=== PATIENT | male | born 1990 ===

== ENCOUNTER 2017-04-29 11:07 | Emergency (ER) | payer MEDICAID ==
[2017-04-29 11:13] VITALS: BP 116/74; PULSE 85; TEMP 97; O2SAT 100
[2017-04-29 11:14] VITALS: BMI 21.5
--- NOTE | 2017-04-29 11:26 | ED PDOC ---
HPI: Abdomen Time Seen by Provider: 04/29/17 11:25 Chief Complaint (Provider): abdominal pain History Per: Patient Additional Complaint(s): 26-year-old male with history of IBS presents to emergency department with 2 week history of generalized body aches and fatigue. Patient denies nausea or vomiting. He does also state he has had indigestion, gas and bloating. Patient is tolerating liquids and solids. Patient takes fiber supplements daily and his last bowel movement was this morning. Denies any associated abdominal pain. Patient also mentions he is currently taking Suboxone. She states 2 weeks ago he developed discomfort and left arm which has since resolved. Upon arrival he denies any chest pain, shortness of breath or dyspnea on exertion. Patient denies any history of recent cough, congestion, sore throat, headache or dizziness. No associated vision changes. Past Medical History Reviewed: Historical Data, Nursing Documentation, Vital Signs Vital Signs: Last Vital Signs Temp 97 F L 04/29/17 11:12 Pulse 85 04/29/17 11:12 Resp BP 116/74 04/29/17 11:12 Pulse Ox 100 04/29/17 12:41 - Medical History Other PMH: IBS - Surgical History Surgical History: No Surg Hx - Family History Family History: States: No Known Family Hx - Living Arrangements Living Arrangements: With Family - Social History Current smoker - smoking cessation education provided: No Alcohol: None Drugs: Denies - Allergies Allergies/Adverse Reactions: Allergies Allergy/AdvReac Type Severity Reaction Status Date / Time No Known Allergies Allergy Verified 04/29/17 11:26 Review of Systems ROS Statement: Except As Marked, All Systems Reviewed And Found Negative Constitutional: Positive for: Other (body aches and fatigue for 2 weeks). Negative for: Fever Cardiovascular: Negative for: Chest Pain, Palpitations Respiratory: Negative for: Cough, Shortness of Breath, SOB with Exertion, Wheezing Gastrointestinal: Positive for: Other (gas and bloating). Negative for: Nausea , Vomiting, Abdominal Pain Genitourinary Male: Negative for: Dysuria Neurological: Negative for: Headache, Dizziness Physical Exam - Reviewed Nursing Documentation Reviewed: Yes Vital Signs Reviewed: Yes - Physical Exam Appears: Positive for: Well, Non-toxic, No Acute Distress Skin: Negative for: Rash Eye Exam: Positive for: Normal appearance, EOMI, PERRL Neck: Positive for: Normal Cardiovascular/Chest: Positive for: Regular Rate, Rhythm. Negative for: Murmur Respiratory: Positive for: Normal Breath Sounds. Negative for: Respiratory Distress Gastrointestinal/Abdominal: Positive for: Soft. Negative for: Tenderness, Distended, Guarding, Rebound Back: Negative for: L CVA Tenderness, R CVA Tenderness Neurologic/Psych: Positive for: Alert, Oriented, Gait (steady). Negative for: Aphasia, Facial Droop - Laboratory Results Result Diagrams: 04/29/17 12:00 04/29/17 12:00 - ECG Interpretation Of ECG: NSR 64 bpm, no acute finding, reviewed by PA and ED attending O2 Sat by Pulse Oximetry: 100 Pulse Ox Interpretation: Normal - Other Rad CXR X-Ray: Interpreted by Me, Viewed By Me X-Ray Interpretation: no infiltrate or other acute finding KUB X-Ray: Interpreted by Me, Viewed By Me X-Ray Interpretation: moderate constipation with no obstruction Medical Decision Making Medical Decision Makin26 year old with body aches, fatigue and indigestion Plan: CBC CMP Flu swab UA CXR KUB EKG IVF Patient is aware of all diagnostic testing results, all questions answered. Patient given copies of labs and was instructed to follow up with primary doctor , medicine television servicer referral was provided. Disposition - Clinical Impression Clinical Impression: Fatigue, Constipation - Patient ED Disposition Is Patient to be Admitted: No Counseled Patient/Family Regarding: Studies Performed, Diagnosis, Need For Followup - Disposition Referrals: Alexey Higgins MD [Staff Provider] - Disposition: Routine/Home Disposition Time: 13:16 Condition: STABLE Additional Instructions: Increase water intake and increase fiber in diet. See attached dietary instructions. Follow up with primary doctor as soon as possible. Instructions: Fatigue (ED), Constipation (ED), High Fiber Diet (ED) Results - Vital Signs Recent Vital Signs: Last Vital Signs Temp 97 F L 04/29/17 11:12 Pulse 85 04/29/17 11:12 Resp BP 116/74 04/29/17 11:12 Pulse Ox 100 04/29/17 12:41 - Labs Result Diagrams: 04/29/17 12:00 04/29/17 12:00 Labs: Laboratory Results - last 24 hr 04/29/17 04/29/17 04/29/17 12:00 12:00 12:00 WBC 5.3 RBC 4.87 Hgb 15.0 Hct 43.1 MCV 88.6 MCH 30.7 MCHC 34.7 RDW 12.4 Plt Count 203 MPV 8.6 Neut % (Auto) 53.3 Lymph % (Auto) 40.1 H Andrews % (Auto) 5.4 Eos % (Auto) 0.9 Baso % (Auto) 0.3 Neut # 2.8 Lymph # 2.1 Andrews # 0.3 Eos # 0.0 Baso # 0.0 Sodium 143 Potassium 5.0 Chloride 102 Carbon Dioxide 27 Anion Gap 19 BUN 21 H Creatinine 1.0 Est GFR ( Amer) > 60 Est GFR (Non-Af Amer) > 60 Random Glucose 86 Calcium 9.5 Total Bilirubin 0.8 AST 51 ALT 108 H Alkaline Phosphatase 75 Total Protein 8.7 H Albumin 5.1 H Globulin 3.6 Albumin/Globulin Ratio 1.4 Urine Color Urine Clarity Urine pH Ur Specific [place] Urine Protein Urine Glucose (UA) Urine Ketones Urine Blood Urine Nitrate Urine Bilirubin Urine Urobilinogen Ur Leukocyte Esterase Urine RBC (Auto) Urine Microscopic WBC Urine Bacteria Influenza Typ A,B (EIA) Negative for flu a/b 04/29/17 12:27 WBC RBC Hgb Hct MCV MCH MCHC RDW Plt Count MPV Neut % (Auto) Lymph % (Auto) Andrews % (Auto) Eos % (Auto) Baso % (Auto) Neut # Lymph # Andrews # Eos # Baso # Sodium Potassium Chloride Carbon Dioxide Anion Gap BUN Creatinine Est GFR ( Amer) Est GFR (Non-Af Amer) Random Glucose Calcium Total Bilirubin AST ALT Alkaline Phosphatase Total Protein Albumin Globulin Albumin/Globulin Ratio Urine Color Yellow Urine Clarity Clear Urine pH 6.0 Ur Specific [place] 1.025 Urine Protein Negative Urine Glucose (UA) Neg Urine Ketones Negative Urine Blood Negative Urine Nitrate Negative Urine Bilirubin Negative Urine Urobilinogen 0.2-1.0 Ur Leukocyte Esterase Neg Urine RBC (Auto) 3 Urine Microscopic WBC < 1 Urine Bacteria Rare Influenza Typ A,B (EIA)
[2017-04-29] MEDS ORDERED: Sodium Chloride 0.9% 1,000 ML IV STA (11:55)
[2017-04-29 12:09] LABS: BASO % 0.3 % (0.0-2.0); EOS % 0.9 % (0.0-4.0); HEMATOCRIT 43.1 % (35.0-51.0); LYMPH # 2.1 K/uL (1.0-4.3); LYMPH % 40.1 % (20.0-40.0); MEAN CELL VOLUME 88.6 fl (80.0-94.0); MEAN CORPUSCULAR HEMOGLOBIN 30.7 pg (27.0-31.0); MEAN CORPUSCULAR HGB CONC 34.7 g/dL (33.0-37.0); MEAN PLATELET VOLUME 8.6 fl (7.2-11.7); MONO # 0.3 K/uL (0.0-0.8); MONO % 5.4 % (0.0-10.0); NEUT # 2.8 K/uL (1.8-7.0); NEUT % 53.3 % (50.0-75.0); NRBC % 0.1 % (0.0-0.0); RED CELL DISTRIBUTION WIDTH 12.4 % (11.5-14.5); WHITE BLOOD COUNT 5.3 K/uL (4.8-10.8)
[2017-04-29 12:17] LABS: ALB/GLOB RATIO 1.4 (1.0-2.1); ALKALINE PHOSPHATASE 75 U/L (38-126); ALT/SGPT 108 U/L (21-72); AST/SGOT 51 U/L (17-59); BILIRUBIN,TOTAL 0.8 mg/dl (0.2-1.3); BLOOD UREA NITROGEN 21 mg/dl (9-20); CALCIUM 9.5 mg/dL (8.4-10.2); CARBON DIOXIDE 27 mmol/L (22-30); CHLORIDE 102 mmol/L (98-107); GFR AFRICAN-AMERICAN > 60; GLUCOSE,RANDOM 86 mg/dL (75-110); SODIUM 143 mmol/l (132-148); TOTAL PROTEIN 8.7 G/DL (6.3-8.2)
[2017-04-29 12:33] LABS: RBC URINE 3 /hpf (0-3); URINE BACTERIA RARE (<OCC); URINE BILIRUBIN NEGATIVE (NEGATIVE); URINE BLOOD NEGATIVE (NEGATIVE); URINE COLOR YELLOW (YELLOW); URINE GLUCOSE (UA) NEG (Normal); URINE KETONE NEGATIVE (NEGATIVE); URINE LEUKOCYTE ESTERASE NEG Leu/uL (Negative); URINE PROTEIN NEGATIVE (NEGATIVE); URINE UROBILINOGEN 0.2-1.0 mg/dL (0.2-1.0); WBC URINE < 1 /hpf (0-5)
--- NOTE | 2017-04-29 12:44 | RAD ---
HISTORY: bloating COMPARISON: None available. FINDINGS: BOWEL: Nonobstructive bowel gas pattern. Moderate constipation. BONES: No acute osseous abnormality is detected. OTHER FINDINGS: None. IMPRESSION: Moderate constipation.
--- NOTE | 2017-04-29 12:44 | RAD ---
HISTORY: body aches COMPARISON: None available. TECHNIQUE: Chest PA and lateral FINDINGS: LUNGS: No focal consolidation. Please note that chest x-ray has limited sensitivity for the detection of pulmonary masses. PLEURA: No significant pleural effusion identified. No definite pneumothorax . CARDIOVASCULAR: The cardiomediastinal silhouette appears within normal limits of size. OSSEOUS STRUCTURES: No acute osseous abnormality identified. VISUALIZED UPPER ABDOMEN: Unremarkable. OTHER FINDINGS: None. IMPRESSION: No focal consolidation, significant pleural effusion, or definite pneumothorax identified.
[2017-04-29 13:27] VITALS: RESP 16
--- NOTE | 2017-04-29 23:37 | CARD ---
APPROVED REPORT EKG Measurement Heart [id number] <Conclusion> Normal sinus rhythm Normal ECG
== END 2017-04-29 13:26 | disposition home or self-care (01) ==
LOC: H.ER 11:07
DX: K59.00 Constipation, unspecified (principal); R53.81 Other malaise